=== PATIENT | male | born 1960 | race African-American/Black ===

== ENCOUNTER 2017-10-13 06:55 | Emergency (ER) | payer SELFPAY | END 2017-10-13 07:17 | disposition home or self-care (01) | LOC: ERS 06:55 | DX: M54.12 Radiculopathy, cervical region (principal); F32.9 Major depressive disorder, single episode, unspecified; F17.210 Nicotine dependence, cigarettes, uncomplicated; Z79.899 Other long term (current) drug therapy | CPT/HCPCS: 99283 ==

== ENCOUNTER 2018-04-27 15:50 | Emergency (ER) | payer MEDICAID ==
[2018-04-27] MEDS ORDERED: Ketorolac Tromethamine 30 MG/ML VIAL ONE (16:36)
--- NOTE | 2018-04-27 16:49 | RAD ---
LEFT KNEE FOUR VIEWS: HISTORY: Pain and knee swelling for two weeks. TECHNIQUE: AP, lateral, and both oblique views of the left knee are obtained. FINDINGS: Four views of the left knee demonstrate some osteophytes seen in the medial compartment of the left k nee. There is also a prominent tibial spine seen. Some joint space narrowing is seen at the medial left knee compartment. IMPRESSION: Medial compartment left knee osteoarthritic changes. No acute fractures or bony lesions seen. POS: [facility]
== END 2018-04-27 18:06 | disposition home or self-care (01) ==
LOC: ERS 15:50
DX: M25.562 Pain in left knee (principal); M79.672 Pain in left foot; F32.9 Major depressive disorder, single episode, unspecified; F17.210 Nicotine dependence, cigarettes, uncomplicated
CPT/HCPCS: 96372; J1885

== ENCOUNTER 2018-04-29 15:47 | Outpatient (CLI) | payer MEDICAID ==
--- NOTE | 2018-04-29 16:58 | MRI ---
MRI CERVICAL SPINE NONCONTRAST: 04/29/18 HISTORY: Neck pain with right arm radiculopathy. FINDINGS: Vertebral body heights are maintained. Desiccation of all the intervertebral discs. Discogenic end p late changes within the bone marrow. C2-3: Osteophytosis with severe stenosis left neural foramen. C3-4: Osteophytosis. Moderate to severe stenosis left neural foramen. C4-5: Disc space narrowing. Posterior osteophyte/disc complex and circumferential degenerative change s. Moderate stenosis of the central canal. Far right lateral disc protrusion compressing the nerve ro ot within the neural foramen. Severe right and mild left foraminal stenosis. C5-6: Disc space narrowing. Minimal degenerative spondylolisthesis. Posterior osteophyte/disc complex with circumferential degenerative changes. Severe stenosis of the central canal. No abnormal signal within the spinal cord. Moderate bilateral foraminal stenoses. C6-7: Mild osteophytosis. Central canal and neural foramina are patent. C7-T1: Central canal and neural foramina are patent. IMPRESSION: 1. Far right lateral disc protrusion at the C5-6 level. Clinical correlation regarding the right C5 dermatome is required. 2. Prominent multilevel degenerative changes throughout the cervical spine, including central ca nal and foraminal stenoses as detailed above. No evidence of myelomalacia. POS: [facility]
== END 2018-04-29 15:48 | disposition home or self-care (01) ==
LOC: SCSMRI 15:47
PROVIDERS: ATTEND Student in an Organized Health Care Education/Training Program
DX: M51.16 Intervertebral disc disorders with radiculopathy, lumbar region (principal); M47.892 Other spondylosis, cervical region; M48.02 Spinal stenosis, cervical region; M99.81 Other biomechanical lesions of cervical region
CPT/HCPCS: 72141

== ENCOUNTER 2018-07-14 10:21 | Outpatient (CLI) | payer OTHER ==
--- NOTE | 2018-07-14 13:17 | MRI ---
MRI LUMBAR SPINE WITHOUT CONTRAST: Date: 07/14/18 HISTORY: Low back pain, with radiculopathy. Symptoms down the left leg x8 months. COMPARISON: None. TECHNIQUE: MRI lumbar spine is performed without intravenous Gadolinium administration. Multisequential, multipl yoana imaging is performed. FINDINGS: Appropriate T1 marrow signal intensity of the lumbar vertebra. Lumbar spine vertebral body height is maintained. There is no fracture. No significant STIR hyperintensity to suggest vertebral body edema or ligamentous injury. Symmetric signal intensity of the psoas muscles. Appropriate signal intensity of the visualized solid organs. Conus medullaris terminates at the inferior aspect of L1. T12-L1: Adequate disc hydration. No significant central canal stenosis. Foramina are patent. L1-2: Adequate disc hydration. No significant central canal stenosis. Foramina are patent. L2-L3: Adequate disc hydration. There is no significant posterior disc abnormality. There is no significant central canal stenosis. Right neural foramen is patent. In the left foraminal disc, there is a T2 and STIR hyperintensity with associated disc protrusion compatible with a left foraminal annular fissure . There is resultant mild left foraminal narrowing. L3-L4: Adequate disc hydration. No significant central canal stenosis. Right neural foramen is patent. Mild left neural foraminal narrowing. L4-L5: Adequate disc hydration. No significant posterior disc abnormality. Minimal central disc bulge. No si gnificant central canal stenosis. Mild right and mild to moderate left neural foraminal narrowing. L5-S1: Adequate disc hydration. No significant central canal stenosis. Neural foramina are mildly narrowed b ilaterally. IMPRESSION: 1. Left foraminal annular fissure at L2-L3. Annular fissure abuts the foraminal left L2 nerve root. 2. No high grade central canal stenosis. Mild to moderate neural foraminal narrowing at multiple lev els as described above. POS: [facility]
== END 2018-07-14 10:22 | disposition home or self-care (01) ==
LOC: TBSIIMAG 10:21
PROVIDERS: ATTEND Neurological Surgery
DX: M54.16 Radiculopathy, lumbar region (principal); M99.83 Other biomechanical lesions of lumbar region
CPT/HCPCS: 72148

== ENCOUNTER 2018-08-18 15:16 | Emergency (ER) | payer OTHER | END 2018-08-18 15:24 | disposition left against medical advice (07) | LOC: ERS 15:16 | DX: Z53.21 Procedure and treatment not carried out due to patient leaving prior to being seen by health care provider (principal) ==

== ENCOUNTER 2018-09-01 13:49 | Outpatient (CLI) | payer OTHER ==
[2018-09-01 15:01] LABS: Hemoglobin 14.2 g/dL (14.0-18.0); Mean Corpuscular HGB CONC 31.8 g/dL (32.0-36.0); Mean Corpuscular Hemoglobin 29.3 pg (27.0-31.0); Mean Corpuscular Volume 92.2 fL (78.0-98.0); Platelet Count 219 thou/uL (130-400); RBC Distribution Width 12.2 % (11.5-14.5); Red Blood Cell (RBC) Count 4.86 mill/uL (4.70-6.10); White Blood Cell (WBC) Count 4.9 thou/uL (4.8-10.8)
[2018-09-01 15:24] LABS: Anion Gap 11 mmol/L (10-20); BUN (Urea Nitrogen) 10 mg/dL (8.4-25.7); Calc. Creatinine Clearance 0 mL/min (70-130); Calcium 9.1 mg/dL (7.8-10.44); Carbon Dioxide 27 mmol/L (22-29); Chloride 105 mmol/L (98-107); Estimated GFR-MDRD 87; Glucose 104 mg/dL (70-105); Potassium 4.2 mmol/L (3.5-5.1); Sodium 139 mmol/L (136-145)
== END 2018-09-01 13:50 | disposition home or self-care (01) ==
LOC: LABBT 13:49
PROVIDERS: ATTEND Neurological Surgery
DX: Z01.818 Encounter for other preprocedural examination (principal); M54.12 Radiculopathy, cervical region
CPT/HCPCS: 80048; 85027; 93005; 93010

== ENCOUNTER 2018-09-08 08:02 | Day surgery (SDC) | payer OTHER ==
[2018-09-01 14:05] VITALS: BMI 22.8
[2018-09-08] MEDS ORDERED: CEFAZOLIN 2 GM/50 ML BAG ONE (09:44)
[2018-09-08] MEDS ORDERED: Sodium Chloride 0.9% 10 ML ONE (11:00)
[2018-09-08] MEDS ORDERED: Fentanyl 250 MCG/5 ML VIAL ONE (12:03)
--- NOTE | 2018-09-08 13:32 | OP ---
DATE OF PROCEDURE: 09/08/2018 SURGEON: Bobo Butts M.D. LABORER CHEESEMAKING: Fercho Malagon PA-C. PROCEDURES PERFORMED: Anterior cervical discectomy C4-C5 and C5-C6, interbody arthrodesis, intervert ebral biomechanical device, local morselized autograft, demineralized bone matrix, anterior titanium instrumentation C4-C6. PROCEDURE IN DETAIL: The patient was brought into the operating room and intubated. He was position ed supine with head in modest extension on a gel-filled donut. Incision was made in the right precer vical area and dissecting medial to sternocleidomastoid muscle, identified the anterior cervical spin e and our level was confirmed by x-ray. We debrided anterior osteophytes, placed distraction across the disc spaces, and using the operating microscope and microdissection techniques, completely decomp ressed the neural elements from foramen to foramen at both affected levels. The bony endplates were then decorticated for the purpose of arthrodesis and appropriately sized intervertebral biomechanical PEEK device was were brought into the field, filled with demineralized bone matrix and local morseli zed autograft, and tapped into place securely at C4-C5 and C5-C6. Next, an anterior plate was david t in the field and secured to C4, C5, and C6 using two 14 mm screws at each level. The wound was the n extensively irrigated, immaculate hemostasis was secured, and the wound was closed in anatomic laye rs.
[2018-09-08] MEDS ORDERED: Fentanyl 100 MCG/2 ML VIAL ONE ×2 (13:39→13:56)
[2018-09-08] MEDS ORDERED: PROPOFOL 200 MG/20 ML VIAL ONE (13:49)
[2018-09-08] MEDS ORDERED: Glycopyrrolate 0.2 MG/ML 5 ML SYRINGE ONE (13:49)
[2018-09-08] MEDS ORDERED: Dexamethasone 20 MG/5 ML VIAL ONE (13:49)
[2018-09-08] MEDS ORDERED: Ondansetron PF 4 MG/2 ML Vial ONE (13:49)
[2018-09-08] MEDS ORDERED: Lidocaine 1% PF 5 ML VIAL ONE (13:49)
[2018-09-08] MEDS ORDERED: Ondansetron HCl/PF 4 MG/2 ML Vial IVP PRN (13:55)
[2018-09-08] MEDS ORDERED: Promethazine HCl 25 MG/ML VIAL IM/IV PRN (13:55)
[2018-09-08] MEDS ORDERED: HYDROmorphone 2 MG/ML VIAL SLOW IVP PRN (13:55)
[2018-09-08] MEDS ORDERED: Non-Formulary Medication 1 EACH PO PRN (13:55)
[2018-09-08] MEDS ORDERED: HYDROmorphone 2 MG/ML VIAL ONE (14:12)
== END 2018-09-08 17:49 | disposition home or self-care (01) ==
LOC: SDC 08:02
PROVIDERS: ATTEND Neurological Surgery
PROC: 0RG20A0 Fusion of 2 or more Cervical Vertebral Joints with Interbody Fusion Device, Anterior Approach, Anterior Column, Open Approach (ICD-10-PCS; principal; 2018-09-08)
PROC: 0RG2070 Fusion of 2 or more Cervical Vertebral Joints with Autologous Tissue Substitute, Anterior Approach, Anterior Column, Open Approach (ICD-10-PCS; principal; 2018-09-08)
PROC: 0RG20K0 Fusion of 2 or more Cervical Vertebral Joints with Nonautologous Tissue Substitute, Anterior Approach, Anterior Column, Open Approach (ICD-10-PCS; principal; 2018-09-08)
DX: M50.121 Cervical disc disorder at C4-C5 level with radiculopathy (principal)
CPT/HCPCS: 76001; 96374; 96375; 96376; C1713; C1776; J1100; J1170; J2001; J2405; J2704; J3010; J3490

== ENCOUNTER 2018-09-11 19:14 | Emergency (ER) | payer OTHER ==
[~2018-09-11 19:14] MED LIST: Iopamidol 370 76% 100 ML VIAL ONE
[2018-09-11 20:04] LABS: #Basophils 0.1 thou/uL (0.0-0.2); #Eosinphils 0.3 thou/uL (0.0-0.7); #Lymphocytes 1.6 thou/uL (1.20-3.40); #Monocytes 0.7 thou/uL (0.11-0.59); #Neutrophils 3.9 thou/uL (1.40-6.50); %Basophils 1.3 % (0.0-1.0); %Lymphocytes 24.8 % (21.0-51.0); %Monocytes 10.8 % (0.0-10.0); %Neutrophils 59.1 % (42.0-75.0); Hemoglobin 15.8 g/dL (14.0-18.0); Mean Corpuscular HGB CONC 33.8 g/dL (32.0-36.0); Mean Corpuscular Hemoglobin 30.3 pg (27.0-31.0); Mean Corpuscular Volume 89.7 fL (78.0-98.0); Mean Platelet Volume 7.6 fL (7.4-10.4); Platelet Count 236 thou/uL (130-400); RBC Distribution Width 11.9 % (11.5-14.5); White Blood Cell (WBC) Count 6.5 thou/uL (4.8-10.8)
[2018-09-11] MEDS ORDERED: Morphine 10 MG/ML VIAL ONE (20:05)
[2018-09-11] MEDS ORDERED: Ondansetron PF 4 MG/2 ML Vial ONE (20:05)
[2018-09-11 20:28] LABS: ALT (SGPT) 7 U/L (8-55); AST (SGOT) 14 U/L (5-34); Albumin 4.3 g/dL (3.5-5.0); Alkaline Phosphatase 75 U/L (40-150); Anion Gap 14 mmol/L (10-20); BUN (Urea Nitrogen) 14 mg/dL (8.4-25.7); Bilirubin, Total 1.1 mg/dL (0.2-1.2); CK (CPK) 208 U/L (30-200); Calc. Creatinine Clearance 0 mL/min (70-130); Calcium 10.2 mg/dL (7.8-10.44); Carbon Dioxide 29 mmol/L (22-29); Chloride 98 mmol/L (98-107); Estimated GFR-MDRD Greater than 90; Glucose 84 mg/dL (70-105); Potassium 4.1 mmol/L (3.5-5.1); Protein, Total 8.3 g/dL (6.0-8.3); Sodium 137 mmol/L (136-145)
[2018-09-11] MEDS ORDERED: Morphine 4 MG/ML VIAL ONE (20:56)
--- NOTE | 2018-09-11 21:25 | CT ---
NECK CT WITH IV CONTRAST 09/11/18 COMPARISON: None. HISTORY: Difficulty swallowing, prior spinal surgery. TECHNIQUE: Axial CT imaging obtained at 2.5 mm intervals from the skull base through lung apices with IV contras t. Coronal and sagittal reformatted imaging obtained. FINDINGS: The imaged brain parenchyma appears grossly unremarkable. The parotid and submandibular glands are unremarkable. The retroantral and parapharyngeal fat appears clear bilaterally. The paranasal sinuses and mastoid air cells grossly unremarkable. Tonsillar pillars and epiglottic/pre-epiglottic fat appear within normal limits. Streak artifact from dental amalgam limits detailed assessment of the oral cavity. There is diffuse edematous change involving the anterior soft tissues of the neck, right greater than left, at the axial level of the C4-5, C5-6 level. Foci of subcutaneous gas are noted ventral to the thyroid cartilage on the right. This suggests recent spinal surgery. There is nonspecific diffuse muc osal edema which is circumferential in nature involving the hypopharyngeal region posterior to the ep iglottis extending inferiorly to the level of the focal cords with associated airway narrowing. The h yoid bone, thyroid cartilage, cricoid cartilage, and thyroid gland appear unremarkable. No subglottic abnormality. There is prevertebral fluid, including a nonspecific prevertebral/retropharyngeal fluid collection an terior to discectomy and fusion hardware, best seen on axial image 51 through 68 measuring 1.1 x 2.5 x 2.6 cm. There is mild nonspecific wall thickening of the esophagus at the level of the thoracic inlet. The vascular structures are patent. The imaged lung apices demonstrate prominent emphysematous change. Review of the osseous structures demonstrates anterior discectomy and fusion hardware at C4-5/C5-6 wi th no discrete evidence of hardware failure. At C6-7, there is disc space narrowing and degenerative end plate change. There is no anterolisthesis or retrolisthesis. No acute fracture or evidence of dis location. IMPRESSION: Evidence of recent anterior discectomy and fusion at C4-5/C5-6. There is prominent soft tissue swelli ng in the prevertebral space with a nonspecific fluid collection anterior to the right aspect of the fusion plate. There is also extensive edema involving the supraglottic mucosa from the axial level of the epiglottis to the axial level of the true cords with significant narrowing of the airway. These findings are nonspecific. This may simply be an expected appearance status post recent surgery. It is impossible to exclude infection and/or hemorrhage. Clinical correlation is essential. Results called to Kizzy Caballero, 8:25 p.m., 09/11/18. Code CR POS: [facility]
[2018-09-11] MEDS ORDERED: Chloraseptic Spray 180 ml Bottle PO PRN (22:14)
[2018-09-11] MEDS ORDERED: Methocarbamol 1 GM in Sodium Chloride 0.9% 250 ML 250 ML IVPB SCH (22:30)
== END 2018-09-12 01:01 | disposition home or self-care (01) ==
LOC: ERS 19:14
DX: T81.89XA Other complications of procedures, not elsewhere classified, initial encounter (principal); R22.1 Localized swelling, mass and lump, neck; R13.10 Dysphagia, unspecified; Z79.899 Other long term (current) drug therapy
CPT/HCPCS: 70491; 80053; 82550; 85025; 96361; 96365; 96366; 96375; 96376; J2270; J2405; J2800; J7050

== ENCOUNTER 2018-09-23 15:58 | Outpatient (CLI) | payer OTHER ==
--- NOTE | 2018-09-23 18:42 | RAD ---
THREE VIEWS CERVICAL SPINE: 09/23/18 HISTORY: Cervical radiculopathy. History of prior surgery. COMPARISON: 01/01/18 FINDINGS: There has been interval postsurgical changes related to anterior cervical fusion at C4-5 and C5-6 lev els with anterior plate and screws transfixing these levels. Intradiscal prosthesis are present. No h ardware complication is identified. C1 to the cervicothoracic junction is seen on the lateral view. T here is no fracture or subluxation seen. Degenerative changes are present at C6-7 level with narrowin g of the intervertebral disc space and osteophytes seen anteriorly. IMPRESSION: 1. Interval postsurgical changes related to anterior cervical fusion of C4 through C7 levels. No hardware complication is present. 2. Degenerative changes at the C6-7 level. POS: [facility]
== END 2018-09-23 15:59 | disposition home or self-care (01) ==
LOC: TBSIIMAG 15:58
PROVIDERS: ATTEND Neurological Surgery
DX: M47.22 Other spondylosis with radiculopathy, cervical region (principal); Z98.1 Arthrodesis status
CPT/HCPCS: 72040

== ENCOUNTER 2018-11-12 12:46 | Outpatient (CLI) | payer OTHER ==
--- NOTE | 2018-11-12 13:41 | RAD ---
CERVICAL SPINE SERIES THREE VIEWS: HISTORY: Neck pain. Follow up surgery. COMPARISON: 09/23/2018 FINDINGS: Anterior cervical fusion with plate and screws extending from C4 to C6 is again noted. Markers of di sk implants are within the confines of the disk level. Moderate disk narrowing is seen at C6-C7. IMPRESSION: Stable postoperative change of the spine. POS: [facility]
== END 2018-11-12 12:47 | disposition home or self-care (01) ==
LOC: TBSIIMAG 12:46
PROVIDERS: ATTEND Neurological Surgery
DX: M54.12 Radiculopathy, cervical region (principal); Z98.890 Other specified postprocedural states
CPT/HCPCS: 72040

== ENCOUNTER 2019-01-09 14:51 | Outpatient (CLI) | payer OTHER ==
--- NOTE | 2019-01-09 15:21 | RAD ---
CERVICAL SPINE SERIES 3 VIEWS: Date: 01/09/19 HISTORY: Follow-up surgery. COMPARISON: 11/12/18. FINDINGS: Anterior cervical fusion placement of plate and screws is seen from C4 to C6. Markers are within the confines of the disc level. Degenerative disc narrowing is seen at the C6-7 level. IMPRESSION: Stable postop change. POS: [facility]
== END 2019-01-09 14:52 | disposition home or self-care (01) ==
LOC: TBSIIMAG 14:51
PROVIDERS: ATTEND Neurological Surgery
DX: M54.12 Radiculopathy, cervical region (principal); Z98.890 Other specified postprocedural states
CPT/HCPCS: 72040

== ENCOUNTER 2019-02-05 06:57 | Day surgery (SDC) | payer OTHER ==
[2019-02-04 14:58] VITALS: BMI 25.3
[2019-02-05 07:48] VITALS: BP 118/82; TEMP 97.9
--- NOTE | 2019-02-05 09:10 | RAD ---
Exam: Cervical myelogram COMPARISON: None HISTORY: Cervical radiculopathy Exposure: 0.8 minutes; 64.4 mcg/sq m FINDINGS: Initial cervical spine creping machine operator radiograph demonstrates a anterior fusion plate with transvert ebral body screw at the C4, C5 and C6. No perihardware lucency. Disc prosthesis at C4-C5 and C5-C6. Mild loss of disc space height and osteophyte formation at C6-C7. Predental space is normal. On the A P projection, no malalignment 2 views of lumbar spine creping machine operator radiograph demonstrates 5 lumbar type vertebral bodies. Mild osteophyte formation at L4. No significant loss of disc space height. No spondylolisthesis or spondylolysis Successful lumbar puncture. Total of 9 cc of Isovue-M 300 contrast was administered intrathecally. No immediate or postprocedural complications TECHNIQUE: Consent obtained to perform a lumbar puncture for cervical myelogram. The L2 to-L3 level w as deemed appropriate. Skin was prepped and draped in a sterile fashion. 1% lidocaine, buffered with sodium bicarbonate was used for local anesthesia. Under fluoroscopic guidance, a 22-gauge spinal needle was advanced in the CSF space. There is prompt flow of clear CSF and to the hub of the needle. Via a short tubing catheter, total of 9 cc of Isovue-M 300 contrast was administered intrathe ana. Patient tolerated the procedure well. No immediate or postprocedure complications IMPRESSION: Successful lumbar puncture for cervical myelogram.
--- NOTE | 2019-02-05 10:27 | CT ---
Exam: Post myelogram cervical spine CT HISTORY:Cervical radiculopathy. Status post cervical fusion. COMPARISON: None Colon Cervical spine CT is performed in the axial length. Three-dimensional reformatted images are submitte d FINDINGS: Anterior fusion plate with transvertebral body screws at C4, C5 and C6. No phani hardware lucency. Dis c prosthesis at C4-C5 and C5-C6 Straightening of normal cervical lordosis. Appropriate alignment of the lateral masses of C1 and C2 a s well as the facets. Intact odontoid process. No craniocervical dissociation. Cervical spine vertebral body height is maintained. No fracture Visualized venous structures are grossly unremarkable. There are emphysematous changes in the visuali zed lung apices. C2-C3: No significant central canal stenosis. Right neural foramen is patent. Moderate left neural fo raminal narrowing due to uncovertebral and facet hypertrophy. C3-C4: No significant central canal stenosis. Right neural foramen is patent. Mild left foraminal flavia rowing due to uncovertebral hypertrophy. C4-C5:Small right paracentral osteophyte ridge. No significant subtle canal stenosis. Mild to moderat e right and mild left foraminal narrowing due to uncovertebral hypertrophy. C5-C6: Broad-based osteophyte ridge without significant central canal stenosis. Moderate bilateral fo raminal narrowing due to uncovertebral hypertrophy. C6-C7:Broad-based discussed by complex abuts the thecal sac. Ventral subarachnoid space is maintained . Mild central canal stenosis. Mild bilateral foraminal narrowing. C7-T1: No significant central canal stenosis or neural foraminal narrowing IMPRESSION: 1.Uncomplicated cervical fusion from C4 through C6. 2. Varying degrees of central canal stenosis and neural foraminal narrowing as detailed above. No todd dence of significant cervical canal stenosis. Moderate bilateral neural foraminal narrowing at C5-C6. Moderate left neural foraminal narrowing at C2-C3.
[2019-02-05] MEDS ORDERED: Iopamidol-M 300 61% 15 ML VIAL ONE (11:22)
== END 2019-02-05 09:40 | disposition home or self-care (01) ==
LOC: RAD 06:57
PROVIDERS: ATTEND Neurological Surgery
PROC: B01B1ZZ Fluoroscopy of Spinal Cord using Low Osmolar Contrast (ICD-10-PCS; principal; 2019-02-05)
DX: M47.22 Other spondylosis with radiculopathy, cervical region (principal); M48.02 Spinal stenosis, cervical region; M51.36 Other intervertebral disc degeneration, lumbar region; F17.200 Nicotine dependence, unspecified, uncomplicated; Z79.899 Other long term (current) drug therapy; Z98.1 Arthrodesis status
CPT/HCPCS: 62302; 72126; Q9967

== ENCOUNTER 2019-02-07 19:46 | Emergency (ER) | payer OTHER ==
[2019-02-07] MEDS ORDERED: Metoclopramide HCl 10 MG/2 ML VIAL ONE (23:08)
[2019-02-07] MEDS ORDERED: diphenhydrAMINE 50 MG/ML VIAL ONE (23:08)
== END 2019-02-08 00:49 | disposition home or self-care (01) ==
LOC: ERS 19:46
DX: R51 Headache (principal); F32.9 Major depressive disorder, single episode, unspecified; F17.210 Nicotine dependence, cigarettes, uncomplicated; Z79.899 Other long term (current) drug therapy
CPT/HCPCS: 93005; 96365; 96375; J1200; J2765

== ENCOUNTER 2019-02-09 18:40 | Observation (INO) | payer OTHER ==
[2019-02-09 19:37] LABS: #Basophils 0.1 thou/uL (0.0-0.2); #Eosinphils 0.4 thou/uL (0.0-0.7); #Lymphocytes 1.6 thou/uL (1.20-3.40); #Monocytes 0.4 thou/uL (0.11-0.59); %Basophils 1.8 % (0.0-1.0); %Eosinophils 8.5 % (0.0-10.0); %Lymphocytes 35.8 % (21.0-51.0); %Monocytes 9.2 % (0.0-10.0); %Neutrophils 44.7 % (42.0-75.0); Hemoglobin 13.8 g/dL (14.0-18.0); Mean Corpuscular HGB CONC 32.1 g/dL (32.0-36.0); Mean Corpuscular Hemoglobin 28.8 pg (27.0-31.0); Mean Platelet Volume 7.8 fL (7.4-10.4); Platelet Count 216 thou/uL (130-400); RBC Distribution Width 11.8 % (11.5-14.5); Red Blood Cell (RBC) Count 4.77 mill/uL (4.70-6.10); White Blood Cell (WBC) Count 4.4 thou/uL (4.8-10.8)
[2019-02-09 20:00] LABS: ALT (SGPT) 8 U/L (8-55); AST (SGOT) 12 U/L (5-34); Alkaline Phosphatase 65 U/L (40-150); Anion Gap 15 mmol/L (10-20); BUN (Urea Nitrogen) 11 mg/dL (8.4-25.7); Bilirubin, Total 0.7 mg/dL (0.2-1.2); Calc. Creatinine Clearance 0 mL/min (70-130); Calcium 9.2 mg/dL (7.8-10.44); Carbon Dioxide 21 mmol/L (22-29); Chloride 104 mmol/L (98-107); Estimated GFR-MDRD Greater than 90; Globulin 2.7 g/dL (2.4-3.5); Glucose 78 mg/dL (70-105); Potassium 3.9 mmol/L (3.5-5.1); Protein, Total 6.7 g/dL (6.0-8.3); Sodium 136 mmol/L (136-145)
--- NOTE | 2019-02-09 22:42 | CT ---
CT brain noncontrast: HISTORY: Headache FINDINGS: There is no evidence of acute intra-axial or extra-axial hemorrhage. There is no midline shift or any other mass effect. There is no extra-axial fluid collection. The ventricles are normal in size and configuration. The tympanomastoid cavities, and the upper portions of the paranasal sinuses included in these images, are grossly clear. Calvarium is intact. IMPRESSION: Normal.
[2019-02-09] MEDS ORDERED: Metoclopramide HCl 10 MG/2 ML VIAL ONE (23:59)
[2019-02-09] MEDS ORDERED: diphenhydrAMINE 50 MG/ML VIAL ONE (23:59)
[2019-02-10] MEDS ORDERED: Fioricet 325/50/40 mg Tablet PO SCH (01:30)
--- NOTE | 2019-02-10 01:36 | PDOC.FPRHP ---
- History of Present Illness Chief Complaint: headache History of Present Illness: 58yo M with hx of recent myleogram for L arm weakness 4 days ago. He has experienced SLAUGHTER since his myelogram and was told that it would resolve after two days but it has only gotten worse. Pt reports that sitting up makes the pain worse, no alleviating factors. Related Nausea and vomiting x3 (non bloody). ED Course: anesthesia called and recommends admission for blood patch, benadryl, reglan, caffeine - Allergies/Adverse Reactions Allergies Allergy/AdvReac Type Severity Reaction Status Date / Time No Known Allergies Allergy Verified 02/05/19 07:32 - Home Medications Medication Instructions Recorded Confirmed Type Acetaminophen W/ Codeine 1 tab PO Q6HR PRN 09/01/18 02/10/19 History [Acetaminophen/Codeine #3] Gabapentin 3 tab PO TID 09/01/18 02/10/19 History hydrOXYzine HCl [Hydroxyzine HCl] 25 mg PO HS 09/01/18 02/10/19 History FLUoxetine HCl [Prozac] 10 mg PO DAILY 02/04/19 02/10/19 History Butalb/Acetaminophen/Caffeine 1 capsule PO Q8H PRN 02/10/19 02/10/19 History [Fioricet Capsule] Clotrimazole [Clotrimazole 1% 1 applic TOP BID 02/10/19 02/10/19 History Cream] Metoclopramide HCl 10 mg PO Q8H PRN 02/10/19 02/10/19 History Nicotine [Nicoderm CQ] 14 mg TD Q24HR patch 02/10/19 Rx traMADol HCl [Conzip] 100 mg PO TID PRN 02/10/19 02/10/19 History - History PMHx: Anxiety/Depression, Degenerative disc disease, HLD, Cervical radiculopathy PSHx: Neck surgery (September 2018) FHx: none Social: Tobacco, active smoker for unknown amount of years 5 cigarettes per day , no drugs no alcohol ALLERGY: NKDA CODE: FULL - Review of Systems General: denies: fever/chills, fatigue Eyes: denies: eye pain, vision changes ENT: denies: nasal congestion, rhinorrhea Respiratory: denies: congestion, shortness of breath Cardiovascular: denies: chest pain, palpitation Gastrointestinal: reports: nausea, vomiting Genitourinary: denies: incontinence, dysuria Skin: denies: lesions, jaundice Musculoskeletal: denies: tenderness, stiffness Neurological: denies: syncope, seizure Psychological: denies: anxiety, depression - Vital signs BP: 110/70, Pulse: 55, Resp: 16, Temp: 98.0 (Oral), Pain: 9, O2 sat: 98 on Room Air, Time: 02/09/2019 18:45. weight: 77kg - Physical Exam Constitutional: NAD, awake, alert and oriented HEENT: EOMI, grossly normal vision, grossly normal hearing, MMM Neck: supple, trachea midline Chest: no-tender to palpation Heart: RRR, normal S1/S2 Lungs: CTAB, no respiratory distress Abdomen: soft, non-tender Musculoskeletal: normal structure, normal tone Neurological: no focal deficit, CN II-XII intact, normal sensation, DTRs 2+ Skin: no rash/lesions, good turgor Heme/Lymphatic: no unusual bruising or bleeding, no purpura, no petechia Psychiatric: normal mood and affect, good judgment and insight FMR H&P: Results - Labs Result Diagrams: 02/09/19 19:25 02/09/19 19:25 Lab results: WBC 4.4 thou/uL (4.8-10.8) L 02/09/19 19:25 Hgb 13.8 g/dL (14.0-18.0) L 02/09/19 19:25 Hct 42.9 % (42.0-52.0) 02/09/19 19:25 MCV 90.0 fL (78.0-98.0) 02/09/19 19:25 Plt Count 216 thou/uL (130-400) 02/09/19 19:25 Neutrophils % 44.7 % (42.0-75.0) 02/09/19 19:25 ESR Westergren 7 mm/hr (Less than 20) 02/09/19 19:25 Sodium 136 mmol/L (136-145) 02/09/19 19:25 Potassium 3.9 mmol/L (3.5-5.1) 02/09/19 19:25 Chloride 104 mmol/L (98-107) 02/09/19 19:25 Carbon Dioxide 21 mmol/L (22-29) L 02/09/19 19:25 BUN 11 mg/dL (8.4-25.7) 02/09/19 19:25 Creatinine 0.95 mg/dL (0.7-1.3) 02/09/19 19:25 Glucose 78 mg/dL (70-105) 02/09/19 19:25 Calcium 9.2 mg/dL (7.8-10.44) 02/09/19 19:25 Total Bilirubin 0.7 mg/dL (0.2-1.2) 02/09/19 19:25 AST 12 U/L (5-34) 02/09/19 19:25 ALT 8 U/L (8-55) 02/09/19 19:25 Alkaline Phosphatase 65 U/L (40-150) 02/09/19 19:25 C-Reactive Protein Less than 0.50 mg/dL (= or < 0.5) 02/09/19 19:25 Serum Total Protein 6.7 g/dL (6.0-8.3) 02/09/19 19:25 Albumin 4.0 g/dL (3.5-5.0) 02/09/19 19:25 FMR H&P: A/P - Problem List (1) Headache Current Visit: Yes Status: Acute Code(s): R51 - HEADACHE (2) HTN (hypertension) Current Visit: Yes Status: Acute Code(s): I10 - ESSENTIAL (PRIMARY) HYPERTENSION (3) Tinea pedis Current Visit: Yes Status: Acute Code(s): B35.3 - TINEA PEDIS - Plan Intractible headache 2/2 complication from myelogram A- Anesthesia consulted from ER with recommendations to admit pt for plans for blood patch P- admit for obs per anesthesia recs for blood patch -morphine 4mg ONE -NPO -f/u anesthesia recs Forehead numbness A- unknown onset of this physical exam finding, could be 2/2 headache P- will hold ASA at this time pending anesthesia recs -consider MRI Tinea pedis -home cotrimazole Back pain 2/2 cervical radiculopathy and degeneration of thoracic intervertebral discs. -f/u outpt HLD -home meds CODE: FULL FMR H&P: Upper Level - Pertinent history 58 yr old male with PMH of chronic low back pain presents for progressively worsening headache. He was seen for a myelogram, ordered by Dr. Butts, 5 days ago. He has had the headache ever since. He was advised that the headache may be normal for a couple days. Patient states he was unable to eat yesterday. Headache is worst in top center of his head. Also hurts worse to sit up. Minimal photophobia. No slurring of speech. No new weakness, numbness, tingling. He also reports that since getting benadryl and reglan in the ER, he is having crampy abdominal pain, worse in RUQ. Having occasional vomiting. - Pertinent findings Gen: lying in bed in no acute distress. Does have facial grimaces at times. heart: RRR, no M/R/G Lungs: CTAB, no W/R/R Abd: diffuse tenderness, worse in RUQ. No rigidity. He does wince in pain when abdomen palpated. soft. BS hypoactive Neuro: Decreased sensation in left side of face, otherwise CN 2-12 intact. strength 3/5 in BLE and seems to be limited by pain. - Plan Date/Time: 02/10/19 1638 I, [Ophelia Gudino], have evaluated this patient and agree with findings/plan as outlined by manager internet retails sales resident. Pertinent changes/additions are listed here. Intractable headache following myelogram -anesthesia consulted for blood patch -received 2 liters NS in ER, reglan x 2, fioricet, benadryl, and zofran without improvement. RUQ and epigastric abdominal pain -LFTs normal. -obtain KUB -consider RUQ US if pain persists Left facial numbness -unknown onset, suspect may be 2/2 headache vs cervical etiology chronic Left upper extremity weakness -cont outpatient workup Addendum - Attending - Attending Attestation Date/Time: 02/10/19 [id number] I personally evaluated the patient and discussed the management with Dr. Dykes. I agree with the History, Examination, Assessment and Plan documented above with any addition or exceptions noted below. The patient presented with a headache that began a few days ago following a myelogram. Pt has tried oral meds without relief. He does not headache is worse when sitting up. Anesthesia has been consulted and plans a blood patch today.
[2019-02-10] MEDS ORDERED: Ondansetron PF 4 MG/2 ML Vial ONE (02:59)
[2019-02-10] MEDS ORDERED: Morphine 4 MG/ML VIAL SLOW IVP SCH (04:32)
[2019-02-10] MEDS ORDERED: Nicotine 14 MG PATCH TD SCH (05:00)
[2019-02-10 05:15] VITALS: BMI 21.7
--- NOTE | 2019-02-10 10:20 | RAD ---
ABDOMEN 1 VIEW: HISTORY: Abdominal pain. FINDINGS: The bowel gas pattern is unremarkable. Multiple calcific densities in the pelvis are likely phleboli ths. No definite suspicious calcifications are identified. POS: [facility]
[2019-02-10 16:20] VITALS: BP 128/74; TEMP 97.4
--- NOTE | 2019-02-11 13:33 | DIS ---
DATE OF ADMISSION: 02/10/2019 DATE OF DISCHARGE: 02/10/2019 RESIDENT: Mariel Post, PGY-1. CONSULTS: Anesthesia. PROCEDURES: Spinal epidural blood patch PRIMARY DIAGNOSIS: Intractable headache likely secondary to myelogram post op complication SECONDARY DIAGNOSES: 1. Back pain secondary to cervical radiculopathy and degeneration of thoracic intervertebral disk. 2. Hyperlipidemia. 3. Tinea pedis. DISCHARGE MEDICATIONS: 1. Hydroxyzine 25 mg p.o. at bedtime. 2. Gabapentin 3 tablets p.o. t.i.d. 3. Acetaminophen. 4. Fluoxetine 10 mg p.o. daily. 5. Tramadol. 6. Clotrimazole. 7. Fioricet 1 capsule p.o. q.8 hours p.r.n. for headache. 8. Metoclopramide. 9. Nicotine 14 mg transdermal q.24 hour patch. DISCONTINUED MEDICATIONS: None. HISTORY OF PRESENT ILLNESS/HOSPITAL COURSE: Mr. Klein is a 58-year-old male who recently underwent a myelogram for new onset of left arm weakness in the setting of chronic degenerative joint disk disease. He was admitted for intractable headache pain. His myelogram was 3 days ago, has been having headches that have not improved even with meds. He also had associated nausea and vomiting. Anesthesia was consulted from the ER who agreed to be consulted for an epidural blood patch. The patient was observed overnight with resolution of headache following his procedure with anesthesia. No other complications during the hospital course. The patient was headache free and stable upon time of discharge. DISPOSITION: Stable. DISCHARGE INSTRUCTIONS: 1. Location: Home. 2. Diet: Heart healthy. 3. Activity: As tolerated. 4. Followup: Please follow up with PCP in 3 to 5 days. Job ID: [id number] [facility]IT[facility]atum
== END 2019-02-10 19:13 | disposition home or self-care (01) ==
LOC: ERS 18:40 → 2SW 02-10 01:30
PROVIDERS: ADMIT Family Medicine; ATTEND Family Medicine
PROC: 3E0S3GC Introduction of Other Therapeutic Substance into Epidural Space, Percutaneous Approach (ICD-10-PCS; principal; 2019-02-10)
DX: G97.1 Other reaction to spinal and lumbar puncture (principal); E78.5 Hyperlipidemia, unspecified; F41.8 Other specified anxiety disorders; F17.210 Nicotine dependence, cigarettes, uncomplicated; M51.34 Other intervertebral disc degeneration, thoracic region; M54.12 Radiculopathy, cervical region; B35.3 Tinea pedis; Z79.899 Other long term (current) drug therapy; Z98.890 Other specified postprocedural states
CPT/HCPCS: 36415; 62272; 70450; 74018; 80053; 85025; 85652; 86140; 93005; 96361; 96365; 96375; G0378; J1200; J2270; J2405; J2765

== ENCOUNTER 2019-04-21 15:21 | Emergency (ER) | payer OTHER ==
[2019-04-21 16:32] LABS: #Basophils 0.1 thou/uL (0.0-0.2); #Eosinphils 0.5 thou/uL (0.0-0.7); #Lymphocytes 1.6 thou/uL (1.20-3.40); #Monocytes 0.5 thou/uL (0.11-0.59); #Neutrophils 2.2 thou/uL (1.40-6.50); %Basophils 1.1 % (0.0-1.0); %Eosinophils 10.7 % (0.0-10.0); %Lymphocytes 32.7 % (21.0-51.0); %Neutrophils 45.5 % (42.0-75.0); Hemoglobin 12.7 g/dL (14.0-18.0); Mean Corpuscular HGB CONC 32.1 g/dL (32.0-36.0); Mean Corpuscular Hemoglobin 29.3 pg (27.0-31.0); Mean Corpuscular Volume 91.2 fL (78.0-98.0); Mean Platelet Volume 7.2 fL (7.4-10.4); Platelet Count 230 thou/uL (130-400); RBC Distribution Width 12.3 % (11.5-14.5); Red Blood Cell (RBC) Count 4.35 mill/uL (4.70-6.10); White Blood Cell (WBC) Count 4.9 thou/uL (4.8-10.8)
[2019-04-21] MEDS ORDERED: Ketorolac Tromethamine 30 MG/ML VIAL ONE (16:40)
--- NOTE | 2019-04-21 16:41 | RAD ---
FRONTAL CHEST RADIOGRAPH WITH TWO VIEWS RIGHT RIBS: 04/21/19 PROVIDED CLINICAL HISTORY: Right sided chest pain. FINDINGS: Cardiac and mediastinal silhouette is within normal limits. Lungs appear clear. No pleural fluid or p neumothorax apparent. No evidence for a displaced right sided rib fracture. IMPRESSION: No evidence for an acute process. POS: [facility]
[2019-04-21 16:59] LABS: ALT (SGPT) 10 U/L (8-55); AST (SGOT) 13 U/L (5-34); Albumin 3.9 g/dL (3.5-5.0); Alkaline Phosphatase 83 U/L (40-150); Anion Gap 11 mmol/L (10-20); BUN (Urea Nitrogen) 13 mg/dL (8.4-25.7); Bilirubin, Total 0.4 mg/dL (0.2-1.2); Calc. Creatinine Clearance 0 mL/min (70-130); Carbon Dioxide 27 mmol/L (22-29); Chloride 105 mmol/L (98-107); Estimated GFR-MDRD Greater than 90; Globulin 2.9 g/dL (2.4-3.5); Glucose 82 mg/dL (70-105); Lipase 45 U/L (8-78); Potassium 3.9 mmol/L (3.5-5.1); Protein, Total 6.8 g/dL (6.0-8.3); Sodium 139 mmol/L (136-145)
[2019-04-21 17:05] LABS: Bilirubin Negative (Negative); Blood, Urine Negative (Negative); Glucose, Urine (Dipstick) Negative (Negative); Leukocyte Negative (Negative); Nitrite Negative (Negative); Protein, Urine (Dipstick) Negative (Neg-Trace)
[2019-04-21 17:08] LABS: Clarity Clear (Clear)
== END 2019-04-21 17:40 | disposition home or self-care (01) ==
LOC: ERS 15:21
DX: M94.0 Chondrocostal junction syndrome [Tietze] (principal); R10.9 Unspecified abdominal pain; Z71.6 Tobacco abuse counseling; F32.9 Major depressive disorder, single episode, unspecified; F17.210 Nicotine dependence, cigarettes, uncomplicated; Z79.899 Other long term (current) drug therapy
CPT/HCPCS: 36415; 80053; 81003; 83690; 85025; 96372; 99406; J1885

== ENCOUNTER 2019-05-23 17:39 | Emergency (ER) | payer OTHER ==
[2019-05-23] MEDS ORDERED: diphenhydrAMINE 50 MG/ML VIAL ONE (17:49)
[2019-05-23] MEDS ORDERED: methylPREDNISolone Sod Succ/PF 125 MG/2 ML VIAL ONE (17:49)
[2019-05-23] MEDS ORDERED: EPINEPHrine 1 MG/ML AMP ONE ×2 (17:52→17:56)
[2019-05-23] MEDS ORDERED: predniSONE 20 MG TAB ONE ×2 (18:47→18:52)
== END 2019-05-23 19:30 | disposition home or self-care (01) ==
LOC: ERS 17:39
DX: T63.461A Toxic effect of venom of wasps, accidental (unintentional), initial encounter (principal); F32.9 Major depressive disorder, single episode, unspecified; F17.210 Nicotine dependence, cigarettes, uncomplicated; Z79.899 Other long term (current) drug therapy
CPT/HCPCS: 96361; 96372; 96374; 96375; J0171; J1200; J2930; J7512

== ENCOUNTER 2019-08-08 00:36 | Emergency (ER) | payer OTHER ==
[2019-08-08] MEDS ORDERED: Ketorolac Tromethamine 30 MG/ML VIAL ONE (00:52)
[2019-08-08] MEDS ORDERED: Morphine 4 MG/ML VIAL ONE (00:52)
== END 2019-08-08 01:25 | disposition home or self-care (01) ==
LOC: ERS 00:36
DX: M54.42 Lumbago with sciatica, left side (principal); F32.9 Major depressive disorder, single episode, unspecified; F17.210 Nicotine dependence, cigarettes, uncomplicated; Z79.899 Other long term (current) drug therapy
CPT/HCPCS: 96372; 99283; J1885; J2270

== ENCOUNTER 2020-07-14 08:06 | Outpatient (CLI) | payer MEDICARE, OTHER ==
--- NOTE | 2020-07-14 11:13 | MRI ---
NONCONTRAST MRI LUMBAR SPINE: Date: 07/14/2020 HISTORY: Intervertebral disc disorder. Low back pain for 2 years that radiates down left leg with associated t ingling and burning in bilateral feet. COMPARISON: 07/14/2018. FINDINGS: Visualized retroperitoneal structures demonstrate a grossly normal nonenhanced MRI appearance. No signal abnormalities are seen in the bone marrow. Conus medullaris is normal in appearance and aga in terminates at the L1-2 level. T12-L1: No significant disc bulge or disc herniation. Central spinal canal and neural foramina are p atent. L1-2: No disc bulge or disc herniation. Central spinal canal and neural foramina are patent. L2-3: Mild loss of intervertebral disc height, similar to prior study. Minimal broad based disc oste ophyte complex is present without significant central canal narrowing. Neural foramina are patent. L3-4: Mild loss of intervertebral disc height. There is a mild broad based disc osteophyte complex p resent. There is small annular tear involving the left posterolateral margin of the intervertebral di sc. There is slight effacement of the ventral subarachnoid space. Mild bilateral neural foraminal flavia rowing is present, greater on the left. L4-5: Mild broad based disc osteophyte complex with tiny central disc protrusion. There is slight fl attening of the anterior aspect of the thecal sac. Mild right and mild to moderate left-sided neural foraminal narrowing are again seen. L5-S1: Mild disc osteophyte complex with tiny left paracentral disc protrusion. A central disc protr usion encroaches on the traversing left S1 nerve root, but does not contact the nerve root. Facet deg enerative changes are present at this level. Mild bilateral neural foraminal narrowing is present, si milar to prior exam. IMPRESSION: 1. Mild disc degenerative changes within the lumbar spine, not significantly progressed when compare d to the prior exam, and no high grade central canal narrowing is present. 2. Tiny annular tear involving the left posterolateral margin of the L3-4 intervertebral disc. Mild and mild to moderate degrees of neural foraminal narrowing are seen scattered within the lumbar spine . POS: OFF
== END 2020-07-14 08:07 | disposition home or self-care (01) ==
LOC: BICMRI 08:06
PROVIDERS: ATTEND Nurse Practitioner Family
DX: M51.16 Intervertebral disc disorders with radiculopathy, lumbar region (principal); M48.061 Spinal stenosis, lumbar region without neurogenic claudication
CPT/HCPCS: 72148

== ENCOUNTER 2021-10-24 17:34 | Emergency (ER) | payer MEDICARE, OTHER ==
[2021-10-24] MEDS ORDERED: Acetaminophen 500 MG TAB ONE (19:42)
[2021-10-25 16:53] LABS: SARS-CoV-2 PCR by NAA DETECTED (NotDetected)
== END 2021-10-24 19:45 | disposition home or self-care (01) ==
LOC: ERS 17:34
DX: U07.1 COVID-19 (principal)
CPT/HCPCS: 99283; U0003; U0005

== ENCOUNTER 2022-05-13 19:34 | Emergency (ER) | payer OTHER, MEDICAID | END 2022-05-13 20:30 | disposition home or self-care (01) | LOC: ERS 19:34 | DX: U07.1 COVID-19 (principal); J06.9 Acute upper respiratory infection, unspecified; F17.210 Nicotine dependence, cigarettes, uncomplicated | CPT/HCPCS: 99283; U0003; U0005 ==

== ENCOUNTER 2022-06-19 15:00 | Outpatient (CLI) | payer OTHER | END 2022-06-19 15:01 | disposition home or self-care (01) | LOC: BICCT 15:00 | PROVIDERS: ATTEND Student in an Organized Health Care Education/Training Program | DX: Z12.2 Encounter for screening for malignant neoplasm of respiratory organs (principal); F17.210 Nicotine dependence, cigarettes, uncomplicated | CPT/HCPCS: 71271 ==

== ENCOUNTER 2022-12-05 09:29 | Outpatient (CLI) | payer OTHER | END 2022-12-05 09:30 | disposition home or self-care (01) | LOC: MRI 09:29 | PROVIDERS: ATTEND Student in an Organized Health Care Education/Training Program | DX: M51.16 Intervertebral disc disorders with radiculopathy, lumbar region (principal); K60.2 Anal fissure, unspecified; M48.061 Spinal stenosis, lumbar region without neurogenic claudication | CPT/HCPCS: 72148 ==

== ENCOUNTER 2022-12-29 06:35 | Emergency (ER) | payer OTHER ==
[2022-12-29] MEDS ORDERED: Ketorolac Tromethamine 30 MG/ML VIAL ONE (07:23)
[2022-12-29] MEDS ORDERED: HYDROcodone/Acetaminophen 10/325 mg Tablet ONE (07:35)
== END 2022-12-29 08:06 | disposition home or self-care (01) ==
LOC: ERS 06:35
DX: M54.2 Cervicalgia (principal); F17.210 Nicotine dependence, cigarettes, uncomplicated; X58.XXXA Exposure to other specified factors, initial encounter; Y92.69 Other specified industrial and construction area as the place of occurrence of the external cause
CPT/HCPCS: 96372; 99283; J1885

== ENCOUNTER 2023-01-01 01:27 | Emergency (ER) | payer OTHER ==
[2023-01-01] MEDS ORDERED: Ketorolac Tromethamine 30 MG/ML VIAL ONE (04:00)
[2023-01-01] MEDS ORDERED: Dexamethasone 10 MG/ML VIAL ONE (04:00)
[2023-01-01] MEDS ORDERED: LORazepam 2 MG/ML SYR.(CARPUJECT) ONE ×2 (04:00→04:01)
[2023-01-01] MEDS ORDERED: FENTANYL 50 MCG/ML 1 ML VIAL ONE (04:00)
== END 2023-01-01 05:51 | disposition home or self-care (01) ==
LOC: ERS 01:27
DX: M54.12 Radiculopathy, cervical region (principal); F17.210 Nicotine dependence, cigarettes, uncomplicated
CPT/HCPCS: J2060; J3010; 96374; 96375; J1100; J1885

== ENCOUNTER 2023-01-04 09:58 | Outpatient (CLI) | payer OTHER | END 2023-01-04 09:59 | disposition home or self-care (01) | LOC: BICRAD 09:58 | PROVIDERS: ATTEND Pediatrics | DX: M12.812 Other specific arthropathies, not elsewhere classified, left shoulder (principal); M54.2 Cervicalgia | CPT/HCPCS: 72040 ==

== ENCOUNTER 2023-05-15 08:30 | Emergency (ER) | payer OTHER ==
[2023-05-15] MEDS ORDERED: Iopamidol-370 76% 500 ML MDV (1 ML CHARGE) ONE (08:50)
[2023-05-15] MEDS ORDERED: Aspirin Chewable 81 MG TAB ONE (08:58)
[2023-05-15 09:57] LABS: #Eosinphils 0.6 thou/uL (0.0-0.7); #Monocytes 0.4 thou/uL (0.11-0.59); #Neutrophils 1.9 thou/uL (1.40-6.50); %Basophils 0.7 % (0.0-1.0); %Eosinophils 12.6 % (0.0-10.0); %Lymphocytes 34.7 % (21.0-51.0); %Monocytes 9.7 % (0.0-10.0); %Neutrophils 42.1 % (42.0-75.0); Hemoglobin 13.5 g/dL (14.0-18.0); Mean Corpuscular HGB CONC 34.2 g/dL (32.0-36.0); Mean Corpuscular Volume 90.8 fl (78.0-98.0); Mean Platelet Volume 10.6 fL (7.4-10.4); Platelet Count 177 10x3/uL (130-400); RBC Distribution Width 13.9 % (11.5-14.5); Red Blood Cell (RBC) Count 4.35 mill/uL (4.70-6.10); White Blood Cell (WBC) Count 4.5 10x3/uL (4.8-10.8)
[2023-05-15 10:18] LABS: ALT (SGPT) 13 U/L (8-55); AST (SGOT) 16 U/L (5-34); Albumin 3.8 g/dL (3.4-4.8); Alkaline Phosphatase 85 U/L (40-110); Anion Gap 12 mmol/L (10-20); BUN (Urea Nitrogen) 7 mg/dL (8.4-25.7); Bilirubin, Total 0.2 mg/dL (0.2-1.2); Calc. Creatinine Clearance 0 mL/min (70-130); Calcium 8.7 mg/dL (7.8-10.44); Carbon Dioxide 27 mmol/L (23-31); Chloride 103 mmol/L (98-107); Estimated GFR 99; Globulin 2.7 g/dL (2.4-3.5); Glucose 92 mg/dL (80-115); Lipase 20 U/L (8-78); Potassium 3.7 mmol/L (3.5-5.1); Protein, Total 6.5 g/dL (5.8-8.1); Sodium 138 mmol/L (136-145)
[2023-05-15 10:22] LABS: Troponin I Less than 0.010 ng/mL (< 0.028)
== END 2023-05-15 12:27 | disposition home or self-care (01) ==
LOC: ERS 08:30
DX: R07.9 Chest pain, unspecified (principal); F17.210 Nicotine dependence, cigarettes, uncomplicated
CPT/HCPCS: 71045; 71275; 80053; 83690; 83880; 84484; 85025; 85379; 93005; Q9967

== ENCOUNTER 2023-06-28 10:56 | Outpatient (CLI) | payer OTHER, MEDICAID | END 2023-06-28 10:57 | disposition home or self-care (01) | LOC: MRI 10:56 | PROVIDERS: ATTEND Neurological Surgery | DX: M50.31 Other cervical disc degeneration, high cervical region (principal); M47.812 Spondylosis without myelopathy or radiculopathy, cervical region; Z98.1 Arthrodesis status | CPT/HCPCS: 72141 ==

== ENCOUNTER 2023-08-10 20:10 | Emergency (ER) | payer OTHER, MEDICAID ==
[2023-08-10] MEDS ORDERED: Famotidine 20 MG TAB ONE (20:28)
[2023-08-10] MEDS ORDERED: diphenhydrAMINE 25 MG CAP ONE (20:28)
[2023-08-10] MEDS ORDERED: methylPREDNISolone Sod Succ/PF 125 MG/2 ML VIAL ONE (20:29)
== END 2023-08-10 21:49 | disposition home or self-care (01) ==
LOC: ERS 20:10
DX: T63.461A Toxic effect of venom of wasps, accidental (unintentional), initial encounter (principal); F17.210 Nicotine dependence, cigarettes, uncomplicated
CPT/HCPCS: 96372; 99282; J2930

== ENCOUNTER 2023-10-18 15:54 | Outpatient (CLI) | payer OTHER, MEDICAID | END 2023-10-18 15:55 | disposition home or self-care (01) | LOC: CT 15:54 | PROVIDERS: ATTEND Student in an Organized Health Care Education/Training Program | DX: Z12.2 Encounter for screening for malignant neoplasm of respiratory organs (principal); F17.210 Nicotine dependence, cigarettes, uncomplicated | CPT/HCPCS: 71271 ==

== ENCOUNTER 2024-03-12 10:18 | Emergency (ER) | payer OTHER ==
[2024-03-12] MEDS ORDERED: Ketorolac Tromethamine 30 MG (1 mL) VIAL ONE (11:56)
== END 2024-03-12 12:55 | disposition home or self-care (01) ==
LOC: ERS 10:18
DX: M54.30 Sciatica, unspecified side (principal); G62.9 Polyneuropathy, unspecified; F17.210 Nicotine dependence, cigarettes, uncomplicated
CPT/HCPCS: 72100; 96372; J1885

== ENCOUNTER 2024-04-23 10:04 | Emergency (ER) | payer OTHER ==
[2024-04-23] MEDS ORDERED: HYDROcodone/Acetaminophen 5/325 mg Tablet ONE (11:27)
== END 2024-04-23 11:42 | disposition home or self-care (01) ==
LOC: ERS 10:04
DX: M25.562 Pain in left knee (principal); M71.22 Synovial cyst of popliteal space [Baker], left knee; F17.210 Nicotine dependence, cigarettes, uncomplicated
CPT/HCPCS: 29505

== ENCOUNTER 2024-08-08 12:54 | Emergency (ER) | payer OTHER ==
[~2024-08-08 12:54] MED LIST changes: -Iopamidol 370 76% 100 ML VIAL ONE; +Iopamidol-370 76% 500 ML MDV (1 ML CHARGE) ONE
[2024-08-08] MEDS ORDERED: Ketorolac Tromethamine 30 MG (1 mL) VIAL ONE (14:03)
[2024-08-08 14:44] LABS: #Basophils Less than 0.03 10x3/uL (0.0-0.2); %Basophils 0.3 % (0.0-1.0); %Eosinophils 1.6 % (0.0-10.0); %Lymphocytes 19.2 % (21.0-51.0); %Monocytes 10.8 % (0.0-10.0); %Neutrophils 67.8 % (42.0-75.0); Hematocrit 41.5 % (42.0-52.0); Hemoglobin 13.2 g/dL (14.0-18.0); Mean Corpuscular HGB CONC 31.8 g/dL (32.0-36.0); Mean Corpuscular Hemoglobin 28.8 pg (27.0-31.0); Mean Corpuscular Volume 90.4 fL (78.0-98.0); Mean Platelet Volume 10.4 fL (7.4-10.4); Platelet Count 237 10x3/uL (130-400); RBC Distribution Width 13.7 % (11.5-14.5); Red Blood Cell (RBC) Count 4.59 mill/uL (4.70-6.10)
[2024-08-08 15:02] LABS: ALT (SGPT) 7 U/L (8-55); AST (SGOT) 13 U/L (5-34); Albumin 3.5 g/dL (3.4-4.8); Alkaline Phosphatase 93 U/L (40-110); Anion Gap 14 mmol/L (10-20); BUN (Urea Nitrogen) 8 mg/dL (8.4-25.7); Bilirubin, Total 0.8 mg/dL (0.2-1.2); Calc. Creatinine Clearance 0 mL/min (70-130); Calcium 9.1 mg/dL (7.8-10.44); Carbon Dioxide 25 mmol/L (23-31); Chloride 102 mmol/L (98-107); Estimated GFR 99; Glucose 91 mg/dL (80-115); Lipase 12 U/L (8-78); Potassium 3.8 mmol/L (3.5-5.1); Protein, Total 7.5 g/dL (5.8-8.1); Sodium 137 mmol/L (136-145)
[2024-08-08 16:29] LABS: Bacteria/HPF None Seen HPF (None Seen); Bilirubin Negative (Negative); Blood, Urine Negative (Negative); CAUTI Indications for Culture Dysuria,urgency,freq; Clarity Clear (Clear); Glucose, Urine (Dipstick) Normal (Negative); Ketone, Urine Negative (Negative); Leukocyte Negative Leu/uL (Negative); Nitrite Negative (Negative); Protein, Urine (Dipstick) 10 mg/dL (Neg-Trace); RBC/HPF 0-3 HPF (0-3); Specific Gravity, Urine 1.017 (1.002-1.036); Squamous Epithelial 0-3 HPF (0-3); WBC/HPF 0-3 HPF (0-3)
[2024-08-08 16:30] LABS: Urine Culture Reflex No No
== END 2024-08-08 16:19 | disposition home or self-care (01) ==
LOC: ERS 12:54
DX: J18.9 Pneumonia, unspecified organism (principal); F17.210 Nicotine dependence, cigarettes, uncomplicated
CPT/HCPCS: 71260; 74177; 80053; 81001; 83690; 85025; J1885; Q9967; 96361; 96374

== ENCOUNTER 2024-08-10 17:03 | Emergency (ER) | payer OTHER ==
[2024-08-10 18:00] LABS: #Basophils 0.03 10x3/uL (0.0-0.2); %Basophils 0.4 % (0.0-1.0); %Eosinophils 1.6 % (0.0-10.0); %Lymphocytes 22.9 % (21.0-51.0); %Monocytes 12.9 % (0.0-10.0); %Neutrophils 61.9 % (42.0-75.0); Hematocrit 45.4 % (42.0-52.0); Hemoglobin 14.3 g/dL (14.0-18.0); Mean Corpuscular HGB CONC 31.5 g/dL (32.0-36.0); Mean Corpuscular Hemoglobin 28.3 pg (27.0-31.0); Mean Corpuscular Volume 89.9 fL (78.0-98.0); Mean Platelet Volume 9.8 fL (7.4-10.4); Platelet Count 291 10x3/uL (130-400); RBC Distribution Width 13.3 % (11.5-14.5); Red Blood Cell (RBC) Count 5.05 mill/uL (4.70-6.10)
[2024-08-10 18:32] LABS: ALT (SGPT) 7 U/L (8-55); AST (SGOT) 15 U/L (5-34); Albumin 3.4 g/dL (3.4-4.8); Alkaline Phosphatase 92 U/L (40-110); Anion Gap 15 mmol/L (10-20); BUN (Urea Nitrogen) 13 mg/dL (8.4-25.7); Bilirubin, Total 0.6 mg/dL (0.2-1.2); Calc. Creatinine Clearance 0 mL/min (70-130); Calcium 9.5 mg/dL (7.8-10.44); Carbon Dioxide 23 mmol/L (23-31); Chloride 103 mmol/L (98-107); Estimated GFR 100; Globulin 4.3 g/dL (2.4-3.5); Glucose 88 mg/dL (80-115); Lipase 13 U/L (8-78); Potassium 3.9 mmol/L (3.5-5.1); Protein, Total 7.7 g/dL (5.8-8.1); Sodium 137 mmol/L (136-145)
[2024-08-10 19:29] LABS: Troponin I Less than 0.010 ng/mL (< 0.028)
[2024-08-10] MEDS ORDERED: Ketorolac Tromethamine 30 MG (1 mL) VIAL ONE (20:13)
[2024-08-10] MEDS ORDERED: Ondansetron ODT 4 MG TAB ONE (20:14)
== END 2024-08-10 20:37 | disposition home or self-care (01) ==
LOC: ERS 17:03
DX: J18.9 Pneumonia, unspecified organism (principal); F17.210 Nicotine dependence, cigarettes, uncomplicated
CPT/HCPCS: 71046; 80053; 83605; 83690; 84484; 85025; 93005; 96372; 99284; J1885; Q0162; 36415

== ENCOUNTER 2024-10-21 09:19 | Outpatient (CLI) | payer OTHER | END 2024-10-21 09:20 | disposition home or self-care (01) | LOC: BICCT 09:19 | PROVIDERS: ATTEND Family Medicine | DX: Z12.2 Encounter for screening for malignant neoplasm of respiratory organs (principal); F17.210 Nicotine dependence, cigarettes, uncomplicated; R91.8 Other nonspecific abnormal finding of lung field | CPT/HCPCS: 71271 ==

== ENCOUNTER 2025-05-12 06:56 | Emergency (ER) | payer OTHER | END 2025-05-12 12:14 | disposition home or self-care (01) | LOC: ERS 06:56 | DX: M25.851 Other specified joint disorders, right hip (principal); M25.551 Pain in right hip; J44.9 Chronic obstructive pulmonary disease, unspecified; F17.210 Nicotine dependence, cigarettes, uncomplicated | CPT/HCPCS: 72170; 73502; 93971; 96372; 99283; J2270 ==

== ENCOUNTER 2025-06-09 00:44 | Observation (INO) | payer OTHER, MEDICAID ==
[2025-06-09 03:05] LABS: #Basophils 0.03 10x3/uL (0.0-0.2); #Eosinophils 0.26 10x3/uL (0.0-0.7); #Monocytes 0.90 10x3/uL (0.11-0.59); #Neutrophils 5.02 10x3/uL (1.40-6.50); %Basophils 0.4 % (0.0-1.0); %Eosinophils 3.5 % (0.0-10.0); %Lymphocytes 16.3 % (21.0-51.0); %Monocytes 12.1 % (0.0-10.0); %Neutrophils 67.4 % (42.0-75.0); Hematocrit 37.4 % (42.0-52.0); Hemoglobin 12.0 g/dL (14.0-18.0); Mean Corpuscular Hemoglobin 27.4 pg (27.0-31.0); Mean Corpuscular Volume 85.4 fL (78.0-98.0); Platelet Count 283 10x3/uL (130-400); Red Blood Cell (RBC) Count 4.38 mill/uL (4.70-6.10); White Blood Cell (WBC) Count 7.44 10x3/uL (4.8-10.8)
[2025-06-09 03:58] LABS: ALT (SGPT) Less than 7 U/L (Less than 45); AST (SGOT) 15 U/L (11-34); Albumin 3.3 g/dL (3.1-4.5); Alkaline Phosphatase 95 U/L (40-110); Anion Gap 14 mmol/L (10-20); BUN (Urea Nitrogen) 7 mg/dL (8.4-25.7); Bilirubin, Total 0.5 mg/dL (0.3-1.2); Calc. Creatinine Clearance 0 mL/min (70-130); Calcium 8.8 mg/dL (7.8-10.44); Carbon Dioxide 23 mmol/L (23-31); Chloride 102 mmol/L (98-107); Globulin 3.6 g/dL (2.4-3.5); Glucose 93 mg/dL (80-115); Potassium 3.7 mmol/L (3.5-5.1); Sodium 135 mmol/L (136-145)
[2025-06-09] MEDS ORDERED: Ondansetron PF 4 MG/2 ML Vial IVP PRN (05:07)
[2025-06-09] MEDS: Acetaminophen 325 MG TAB PO PRN (09:10)
[2025-06-09] MEDS ORDERED: Iopamidol 370 76% 100 ML VIAL ONE (13:01)
[2025-06-09] MEDS ORDERED: Bupivacaine 0.25% HCL 30 ML VIAL ONE (13:26)
[2025-06-09] MEDS ORDERED: PROPOFOL 20 ML ONE (13:27)
[2025-06-09] MEDS ORDERED: Lidocaine 1% PF 5 ML VIAL ONE (13:27)
[2025-06-09] MEDS ORDERED: CEFAZOLIN 2 GM VIAL ONE (13:36)
[2025-06-09] MEDS ORDERED: Ondansetron PF 4 MG/2 ML Vial ONE (14:08)
[2025-06-09] MEDS ORDERED: PROPOFOL 200 MG/20 ML VIAL ONE (14:08)
[2025-06-09] MEDS ORDERED: fentaNYL PF 100 MCG/2 ML SYRINGE ONE (14:19)
[2025-06-09] MEDS ORDERED: HYDROmorphone 0.5 MG/0.5 ML SYRINGE ONE ×2 (15:14→16:09)
[2025-06-09] MEDS: hydrALAZINE 20 MG/ML VIAL SLOW IVP PRN (18:18)
[2025-06-10 04:54] VITALS: TEMP 98.1
[2025-06-10 08:10] VITALS: BP 125/85
[2025-06-10 09:20] LABS: #Basophils 0.03 10x3/uL (0.0-0.2); #Eosinophils 0.17 10x3/uL (0.0-0.7); #Monocytes 1.03 10x3/uL (0.11-0.59); #Neutrophils 5.68 10x3/uL (1.40-6.50); %Basophils 0.4 % (0.0-1.0); %Eosinophils 2.1 % (0.0-10.0); %Lymphocytes 14.3 % (21.0-51.0); %Monocytes 12.7 % (0.0-10.0); %Neutrophils 70.3 % (42.0-75.0); Anion Gap 16 mmol/L (10-20); BUN (Urea Nitrogen) 7 mg/dL (8.4-25.7); Calc. Creatinine Clearance 0 mL/min (70-130); Calcium 9.0 mg/dL (7.8-10.44); Carbon Dioxide 25 mmol/L (23-31); Chloride 98 mmol/L (98-107); Glucose 89 mg/dL (80-115); Hematocrit 42.1 % (42.0-52.0); Hemoglobin 13.5 g/dL (14.0-18.0); Mean Corpuscular Hemoglobin 27.7 pg (27.0-31.0); Mean Corpuscular Volume 86.4 fL (78.0-98.0); Platelet Count 332 10x3/uL (130-400); Potassium 3.8 mmol/L (3.5-5.1); Red Blood Cell (RBC) Count 4.87 mill/uL (4.70-6.10); Sodium 135 mmol/L (136-145); White Blood Cell (WBC) Count 8.09 10x3/uL (4.8-10.8)
[2025-06-10] MEDS ORDERED: Acetaminophen/Codeine 30-300mg Tablet PO SCH (14:30)
[2025-06-10] MEDS: PNEUMOC 20-VAL CONJ-DIP CRM/PF 0.5 ML SYRINGE IM ONE (15:20)
== END 2025-06-10 16:10 | disposition home or self-care (01) ==
LOC: ERS 00:44 → SURG B 05:11
PROVIDERS: ADMIT Surgery; ATTEND Surgery
PROC: 0D9P0ZZ Drainage of Rectum, Open Approach (ICD-10-PCS; principal; 2025-06-10)
DX: K61.1 Rectal abscess (principal); E78.00 Pure hypercholesterolemia, unspecified; Z88.8 Allergy status to other drugs, medicaments and biological substances; Z79.899 Other long term (current) drug therapy
CPT/HCPCS: 46040; 74177; 80048; 80053; 85025 ×2; 96374; 99284; G0378 ×2; J0360; J1171; J2405; J2543 ×2; J2704; Q9967; 36415; J0169; J0665; J3010

== ENCOUNTER 2025-06-10 16:48 | Emergency (ER) | payer OTHER, MEDICAID ==
[2025-06-10] MEDS ORDERED: Famotidine 20 MG TAB ONE (17:09)
[2025-06-10] MEDS ORDERED: diphenhydrAMINE 25 MG CAP ONE (18:02)
== END 2025-06-10 17:58 | disposition home or self-care (01) ==
LOC: ERS 16:48
DX: L50.0 Allergic urticaria (principal); E78.5 Hyperlipidemia, unspecified; J44.9 Chronic obstructive pulmonary disease, unspecified; F17.210 Nicotine dependence, cigarettes, uncomplicated; F12.10 Cannabis abuse, uncomplicated
CPT/HCPCS: 99282

== ENCOUNTER 2025-08-17 12:19 | Emergency (ER) | payer OTHER, MEDICAID ==
[2025-08-17] MEDS ORDERED: Ketorolac Tromethamine 30 MG (1 mL) VIAL ONE (17:08)
== END 2025-08-17 18:19 | disposition home or self-care (01) ==
LOC: ERS 12:19
DX: S29.012A Strain of muscle and tendon of back wall of thorax, initial encounter (principal); J44.9 Chronic obstructive pulmonary disease, unspecified; E78.00 Pure hypercholesterolemia, unspecified; F17.210 Nicotine dependence, cigarettes, uncomplicated; Z79.899 Other long term (current) drug therapy; X58.XXXA Exposure to other specified factors, initial encounter
CPT/HCPCS: 71045; 93005; 96372; J1885

== ENCOUNTER 2025-10-08 08:55 | Emergency (ER) | payer OTHER, MEDICAID | END 2025-10-08 11:15 | disposition home or self-care (01) | LOC: ERS 08:55 | DX: L02.31 Cutaneous abscess of buttock (principal); F17.210 Nicotine dependence, cigarettes, uncomplicated | CPT/HCPCS: 10060 ==